=== PATIENT | female | born 1985 | race Caucasian/White ===

== ENCOUNTER 2024-08-29 19:46 | Inpatient (IN) | payer OTHER ==
[~2024-08-29] VITALS: Ht 149.9 cm; Wt 83.9 kg
[2024-08-29 20:13] VITALS: TEMP 98.4
[2024-08-29 20:28] LABS: BASOPHILS # (AUTO) 0.1 (0.0-0.1); BASOPHILS % 0.4 % (0.0-1.0); EOSINOPHILS # (AUTO) 0.3 (0.0-0.4); EOSINOPHILS % 2.6 % (0.0-6.0); HEMATOCRIT 41.7 % (34.2-44.1); HEMOGLOBIN 12.9 g/dL (12.0-16.0); LYMPHOCYTES # (AUTO) 1.6 (1.0-3.2); MEAN CORPUSCULAR HEMOGLOBIN 28.6 pg (28-32); MEAN CORPUSCULAR HGB CONC 30.9 g/dL (31-35); MEAN CORPUSCULAR VOLUME 92.5 fL (81-99); MONOCYTES # (AUTO) 0.8 (0.2-0.8); MONOCYTES % 6.9 % (4.4-11.3); NEUTROPHILS # (AUTO) 8.5 (2.1-6.9); NEUTROPHILS % 75.7 % (38.7-80.0); PLATELET COUNT 309 x10e3/uL (140-360); RED BLOOD COUNT 4.51 x10e6/uL (3.6-5.1); RED CELL DISTRIBUTION WIDTH 12.8 % (11.7-14.4)
[2024-08-29] MEDS: ONDANSETRON HCL INJ 2MG/ML 2ML 2 MG/ML VIAL IV STA (20:36)
[2024-08-29] MEDS: SODIUM CHLORIDE 0.9% 1000ML 1,000 ML IV STA (20:37)
[2024-08-29 20:51] LABS: ALBUMIN 3.9 g/dL (3.5-5.0); ALBUMIN/GLOBULIN RATIO 1.3 (0.8-2.0); BILIRUBIN,TOTAL 0.8 mg/dL (0.2-1.2); CALCIUM 9.7 mg/dL (8.4-10.2); CREATININE, SERUM 0.8 mg/dL (0.57-1.11)
[2024-08-29 20:56] LABS: BILIRUBIN,URINE NEGATIVE (NEGATIVE); CLARITY,URINE CLEAR (CLEAR); COLOR,URINE YELLOW (YELLOW); GLUCOSE, URINE NEGATIVE (NEGATIVE); KETONES,URINE NEGATIVE (NEGATIVE); LEUKOCYTE ESTERASE ,URINE TRACE (NEGATIVE); NITRITE,URINE NEGATIVE (NEGATIVE); PH,URINE 6 (5 - 7); PROTEIN,URINE DIPSTICK NEGATIVE (NEGATIVE); URINE UROBILINOGEN 0.2 mg/dL (0.2 - 1)
[2024-08-29 20:57] LABS: PREGNANCY TEST, URINE NEGATIVE (NEGATIVE)
[2024-08-29] MEDS: Morphine 4mg INJECTION 4 MG/ML INJ IV STA (21:00)
[2024-08-29] MEDS ORDERED: IOPAMIDOL 370 MG/ML 100 ML INFUS..BTL INJ ONE (21:05)
[2024-08-29 21:08] LABS: BACTERIA,URINE MANY /HPF
[2024-08-29 21:09] LABS: EPITHELIAL CELLS,URINE MANY /LPF; TRANSITIONAL EPI CELLS,URINE FEW
[2024-08-29 23:15] VITALS: PULSE 77; RESP 20
[2024-08-30] VITALS (11 sets, daily range): BP systolic 114–133; BP diastolic 58–96; PULSE 72–87; RESP 16–18; TEMP 97.6–98.3; O2SAT 96–100
[2024-08-30] MEDS: ONDANSETRON HCL INJ 2MG/ML 2ML 2 MG/ML VIAL IV PRN (00:08)
[2024-08-30] MEDS: Morphine 4mg INJECTION 4 MG/ML INJ IV PRN (00:09)
[2024-08-30] MEDS ORDERED: TRAZODONE HCL100 MG PO (06:50)
[2024-08-30] MEDS ORDERED: BUPROPION HCL100 MG PO (06:50)
[2024-08-30 08:33] LABS: BASOPHILS # (AUTO) 0.1 (0.0-0.1); BASOPHILS % 0.6 % (0.0-1.0); EOSINOPHILS # (AUTO) 0.3 (0.0-0.4); EOSINOPHILS % 3.3 % (0.0-6.0); HEMATOCRIT 39.6 % (34.2-44.1); LYMPHOCYTES # (AUTO) 1.8 (1.0-3.2); LYMPHOCYTES % 17.7 % (18.0-39.1); MEAN CORPUSCULAR HEMOGLOBIN 28.4 pg (28-32); MEAN CORPUSCULAR HGB CONC 30.3 g/dL (31-35); MEAN CORPUSCULAR VOLUME 93.6 fL (81-99); MONOCYTES # (AUTO) 0.8 (0.2-0.8); MONOCYTES % 7.9 % (4.4-11.3); NEUTROPHILS % 69.9 % (38.7-80.0); PLATELET COUNT 275 x10e3/uL (140-360); RED BLOOD COUNT 4.23 x10e6/uL (3.6-5.1); RED CELL DISTRIBUTION WIDTH 13.1 % (11.7-14.4); WHITE BLOOD COUNT 10.01 x10e3/uL (4.8-10.8)
[2024-08-30 09:10] LABS: ALBUMIN 3.3 g/dL (3.5-5.0); ALBUMIN/GLOBULIN RATIO 1.4 (0.8-2.0); ANION GAP 13.3 mmol/L (8-16); BILIRUBIN,TOTAL 0.9 mg/dL (0.2-1.2); CALCIUM 8.7 mg/dL (8.4-10.2); CREATININE, SERUM 0.74 mg/dL (0.57-1.11); TOTAL PROTEIN 5.7 g/dL (6.5-8.1)
[2024-08-30 09:11] LABS: POTASSIUM 3.3 mmol/L (3.5-5.1)
[2024-08-30] MEDS ORDERED: ACETAMINOPHEN/CODEINE 300MG - 30MG TAB PO PRN (11:45)
[2024-08-30] MEDS ORDERED: ALBUTEROL/IPRATROPIUM 3 ML NEB NEB PRN (12:15)
[2024-08-30] MEDS ORDERED: DOCUSATE SODIUM 100 MG CAP PO PRN (12:15)
[2024-08-30] MEDS ORDERED: SIMETHICONE 80 MG CHEW PO PRN (12:15)
[2024-08-30] MEDS ORDERED: METOPROLOL TARTRATE INJ 1 MG/ML VIAL IV PRN (12:15)
[2024-08-30] MEDS ORDERED: MELATONIN 3 MG TAB PO PRN (12:15)
[2024-08-30] MEDS: SODIUM CHLORIDE 0.9% 1000ML 1,000 ML IV SCH (12:34)
[2024-08-30] MEDS: ENOXAPARIN SOD INJ 40 MG/0.4 ML SYR SC SCH (17:17)
[2024-08-30] MEDS: FAMOTIDINE 20 MG TAB PO SCH (17:17)
[2024-08-30] MEDS: PROMETHAZINE 12.5MG/ NACL 0.9% 12.5 MG/50 ML BAG IV PRN (18:22)
[2024-08-30] MEDS: METRONIDAZOLE 500MG/NS 100ML 100 ML IV SCH (18:23)
[2024-08-30] MEDS: ACETAMINOPHEN 325 MG TAB PO PRN (18:23)
[2024-08-30] MEDS: TRAZODONE HCL 50 MG TAB PO SCH (21:36)
[2024-08-31] VITALS (8 sets, daily range): BP systolic 89–126; BP diastolic 50–81; PULSE 68–92; RESP 16–18; TEMP 97.9–98.2; O2SAT 95–100
[2024-08-31 07:42] LABS: ALBUMIN 3.2 g/dL (3.5-5.0); BILIRUBIN,DIRECT 0.4 mg/dL (0.0-0.5); TOTAL PROTEIN 5.8 g/dL (6.5-8.1)
[2024-08-31] MEDS: SENNOSIDES 8.6 MG TAB PO SCH (09:29)
[2024-08-31] MEDS: BUPROPION HCL 150 MG TABCR PO SCH (09:29)
== END 2024-08-31 16:42 | disposition home or self-care (01) | DRG 690 ==
LOC: ER 19:55 → ERHOLD 22:32 → MED/SURG3 08-30 01:41 → OBSVTOIN 08-31 14:06
PROVIDERS: ADMIT Internal Medicine; ATTEND Internal Medicine
DX: N39.0 Urinary tract infection, site not specified (principal); E86.0 Dehydration; N83.291 Other ovarian cyst, right side; K80.20 Calculus of gallbladder without cholecystitis without obstruction; F39 Unspecified mood [affective] disorder; Z79.899 Other long term (current) drug therapy
CPT/HCPCS: 36415; 74177; 76705; 80053; 80076; 81001; 81025; 83690; 85025; 94799; 99284; G0378; J0696; J1650; J2270; J2405; J2550; J7030; Q9967